=== PATIENT | female | born 2000 | race Asian ===

== ENCOUNTER 2024-09-12 17:14 | Emergency (ER) | payer SELFPAY ==
[~2024-09-12] VITALS: Ht 157.5 cm; Wt 100.0 kg
[2024-09-12 23:38] VITALS: BP 127/67; PULSE 68; RESP 16; TEMP 97.9; O2SAT 99
== END 2024-09-13 00:02 | disposition home or self-care (01) ==
LOC: EMS 17:14
DX: M25.511 Pain in right shoulder (principal); J45.909 Unspecified asthma, uncomplicated; V49.40XA Driver injured in collision with unspecified motor vehicles in traffic accident, initial encounter; Y92.410 Unspecified street and highway as the place of occurrence of the external cause
CPT/HCPCS: 72040; 99284; 73030-TC; Z7502